=== PATIENT | female | born 1950 | race Two or more races ===

== ENCOUNTER 2025-06-29 10:57 | Inpatient (IN) | payer MEDICARE, MEDICAID ==
[~2025-06-29] VITALS: Ht 160 cm; Wt 63.0 kg
[2025-06-29] VITALS (7 sets, daily range): BP systolic 116–121; BP diastolic 56–62; PULSE 68–92; RESP 18–26; TEMP 97.9–98.4; O2SAT 91–98
--- NOTE | 2025-06-29 12:57 | ED.PDOC ---
SOB-HPI HPI Comments This is a 74 year old female presenting to the ED with chief complaint of SOB. Patient reports that she has been experiencing SOB with associated coughing and chest pressure for the past 3 weeks, worsening over the past week. Patient relays that she had steroids and antibiotics ordered by an urgent care, but no relief has been noted. Patient notes she is currently on O2 at home, on 3L, but no relief was noted. Patient denies any fever, chills, N/V, hemoptysis, or headache. Chief Complaint: Shortness of Breath Time Seen by MD: 12:55 Reviewed notes: Nurses Notes, Medications, Allergies Information Source: Patient Mode of Arrival: Ambulatory Severity: Moderate Timing: Days Duration: Since onset Context: At Rest PE Risk Factors: None History of: Asthma Prehospital treatment: Oxygen Modifying Factors: Nothing Associated Signs and Symptoms: Cough, Chest Pain Quality: Pressure Radiation: No Radiation Location: Substernal If cough with SOB: Non-Productive Past Medical History PAST MEDICAL HISTORY: Asthma Surgical History: Denies all surgeries [employer] History: Denies all [employer] Hx Family History Family History: Reviewed,noncontributory to illness Social History Smoker: Non-Smoker Alcohol: Denies ETOH Use Drugs: Denies Drug Use Lives In: Home Constitutional: denies: chills, diaphoresis, fatigue, fever, malaise, sweats, weakness, others EENTM: denies: blurred vision, double vision, ear bleeding, ear discharge, ear drainage, ear pain, ear ringing, eye pain, eye redness, hearing loss, mouth pain, mouth swelling, nasal discharge, nose bleeding, nose congestion, nose pain, photophobia, tearing, throat pain, throat swelling, voice changes, others Respiratory: reports: cough, shortness of breath; denies: hemoptysis, orthopnea, SOB at rest, SOB with excertion, stridor, wheezing, others Cardiovascular: reports: chest pain; denies: dizzy spells, diaphoresis, Dyspnea on exertion, edema, irregular heart beat, left arm pain, lightheadedness, palpitations, PND, syncope, others Gastrointestinal: denies: abdomen distended, abdominal pain, blood streaked bowels, constipated, diarrhea, dysphagia, difficulty swallowing, hematemesis, melena, nausea, poor appetite, poor fluid intake, rectal bleeding, rectal pain, vomiting, others Genitourinary: denies: abnormal vagina bleeding, burning, dyspareunia, dysuria, flank pain, frequency, hematuria, incontinence, pain, , vagina discharge, urgency, others Neurological: denies: dizziness, fainting, headache, left sided numbness, left sided weakness, numbness, paresthesia, pre-existing deficit, right sided numbness, right sided weakness, seizure, speech problems, tingling, tremors, weakness, others Musculoskeletal: denies: back pain, gout, joint pain, joint swelling, muscle pain, muscle stiffness, neck pain, others Integumetry: denies: bruises, change in color, change in hair/nails, dryness, laceration, lesions, lumps, rash, wounds, others Allergic/Immunocompromised: denies: Difficulty Healing, Frequent Infections, Hives, Itching, others Hematologic/Lymphatic: denies: anemia, blood clots, easy bleeding, easy bruising, swollen glands, others Endocrine: denies: excessive hunger, excessive sweating, excessive thirst, excessive urination, flushing, intolerance to cold, intolerance to heat, unexplained weight gain, unexplained weight loss, others Psychiatric: denies: anxiety, bipolar disorder, depression, hopeless, panic disorder, schizophrenia, sleepless, suicidal, others All Other Systems: Reviewed and Negative Physical Exam General Appearance: No Apparent Distress, Normal HEENT: Normal ENT Inspection, Pharynx Normal, TMs Normal Neck: Full Range of Motion, Non-Tender, Normal, Normal Inspection Respiratory: Chest Non-Tender, Lungs Clear, No Accessory Muscle Use, Other (Tachypneic) Cardiovascular: No Edema, No JVD, No Murmur, No Gallop, Normal Peripheral Pulses, Tachycardia Breast Exam: Deferred Gastrointestinal: No Organomegaly, Non Tender, No Pulsatile Mass, Normal Bowel Sounds, Soft Genitalia: Deferred Pelvic: Deferred Rectal: Deferred Extremities: No calf tenderness, Normal capillary refill, Normal inspection, Normal range of motion, Non-tender, No pedal edema Musculoskeletal : Apperance: Normal Neurologic: Alert, 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 Was a procedure done?: No Differential Dx Differential Diagnosis: CHF, Pneumonia, Sinusitis X-Ray, Labs, Meds, VS Vital Signs Date Time Temp Pulse Resp B/P (MAP) Pulse Ox O2 Delivery O2 Flow Rate FiO2 06/29/25 14:03 98.8 82 18 139/92 (108) 96 98.8 06/29/25 11:05 99.0 88 18 140/91 95 99.0 Lab Test 06/29/25 15:48 06/29/25 13:51 06/29/25 12:55 Range/Units Troponin I High Sensitivity Pending 6 5 </=34 ng/L White Blood Count 13.3 H 4.4-10.8 10^3/uL Red Blood Count 5.05 4.0-5.20 10^6/uL Hemoglobin 14.9 12.2-16.2 g/dL Hematocrit 45.2 36.0-46.0 % Mean Corpuscular Volume 89.5 80.0-100.0 fL Mean Corpuscular Hemoglobin 29.4 28.0-32.0 pg Mean Corpuscular Hemoglobin Concent 32.9 32.0-36.0 g/dL Red Cell Distribution Width 14.5 H 11.8-14.3 % Platelet Count 274 140-450 10^3/uL Mean Platelet Volume 7.1 6.9-10.8 fL Neutrophils (%) (Auto) 37.0-80.0 % Lymphocytes (%) (Auto) 10.0-50.0 % Monocytes (%) (Auto) 0.0-12.0 % Eosinophils (%) (Auto) 0.0-7.0 % Basophils (%) (Auto) 0.0-2.0 % Neutrophils # (Auto) 1.6-8.6 10 ^3/uL Lymphocytes # (Auto) 0.4-5.4 10 ^3/uL Monocytes # (Auto) 0-1.3 10 ^3/uL Differential Total Cells Counted 100.0 100 Neutrophils % (Manual) 50 37.0-80.0 Band Neutrophils % (Manual) 2 Lymphocytes % (Manual) 21 10.0-50.0 Monocytes % (Manual) 6 0-12 Eosinophils % (Manual) 21 H 0-7 Basophils % (Manual) 0 0.0-2.0 Metamyelocytes % (manual) 0 Myelocytes % (Manual) 0 Promyelocytes % (Manual) 0 Blast Cells % (Manual) 0 Reactive Lymphocytes 0 Platelet Estimate Adequate Sodium Level 144 136-145 mmol/L Potassium Level 3.7 3.5-5.1 mmol/L Chloride Level 106 98-107 mmol/L Carbon Dioxide Level 27 20-31 mmol/L Anion Gap 11 5-15 Blood Urea Nitrogen 14 9-23 mg/dL Creatinine 0.55 0.550-1.02 mg/dL Glomerular Filtration Rate Calc 97 >90 mL/min BUN/Creatinine Ratio 25.5 H 10.0-20.0 Serum Glucose 88 74-106 mg/dL Lactic Acid Level 0.6 0.4-2.0 mmol/L Calcium Level 9.0 8.7-10.4 mg/dL B-Type Natriuretic Peptide 11.36 0-100 pg/mL [place] [id number] Ph: [phone] DIAGNOSTIC IMAGING Diagnostic Imaging Report : [id number] Signed PATIENT: CANELO FUENTESACCT: [id number] UNIT: [id number] : 1950 LOC: ER ROOM / BED: / AGE / SEX: 74 / F ADM STATUS: REG ER SERVICE 1239 ORDERING PHYSICIAN: RENETTA RAYMUNDO MD PROCEDURE(s): CXRP - CHEST PORTABLE REASON: sob ORDER NUMBER(s): [id number], ACCESSION NUMBER(s): [id number] CHEST RADIOGRAPH INDICATION: sob TECHNIQUE: Single frontal view of the chest was obtained COMPARISON: None FINDINGS: Lines and Tubes: None Lungs: Bilateral perihilar peribronchial and perivascular prominence. Pleura: No effusion. No pneumothorax. Cardiomediastinal contours: Unremarkable cardiac size is within normal limits Bones: No acute osseous abnormality. IMPRESSION: 1. Acute versus chronic changes in the perihilar region bilaterally. ATED BY: BECKY SERRA Jr., DO DICTATED DATE/TIME: 06/29/251332 SIGNED BY: BECKY SERRA Jr., SIGNED DATE/TIME: 06/29/251332 CC: Images Reviewed?: Images reviewed and evaluated by me Time of 1ST Reevaluation: 13:54 Reevaluation 1ST: Unchanged Patient Education/Counseling: Diagnosis, Treatment Family Education/Counseling: No Family Present SEPSIS Sepsis Screen Date sepsis recognized/suspect: Jun 29, 2025 Time Sepsis recognized/suspect: 1104 Recent Procedure: No On Antibiotic Therapy: No Respiratory Rate >20: No Heart Rate >90: No Temp<36 C (96.8 F) or >38.3 C: No SBP <90 or MAP <65 mmHG: No New Acute Mental Status Change: No Is the patient on CPAP, BIPAP,: No Physician Orders Urinalysis (06/29/25 12:39) Chest Portable (06/29/25 12:39) Electrocardigram (06/29/25 12:39) Blood Culture (06/29/25 12:39) Troponin-I Hs (06/29/25 15:39) Electrocardigram (06/29/25 13:39) Electrocardigram (06/29/25 15:39) Albuterol Medneb (Ventolin Medneb) (06/29/25 16:15) Ipratropium Medneb (Atrovent Medneb) (06/29/25 16:15) Methylprednisolone Sod Succ (Solu Medrol (06/29/25 16:15) Vital Signs Date Time Temp Pulse Resp B/P (MAP) Pulse Ox O2 Delivery O2 Flow Rate FiO2 06/29/25 14:03 98.8 82 18 139/92 (108) 96 98.8 06/29/25 11:05 99.0 88 18 140/91 95 99.0 Laboratory Tests Test 06/29/25 12:55 Lactic Acid Level 0.6 mmol/L (0.4-2.0) White Blood Count 13.3 10^3/uL (4.4-10.8) H Departure 1 Departure Time of Disposition: 16:07 (Patient presented with acute shortness of breath concerning for acute on chronic COPD Exacerbation, Pneumonia, ACS, CHF, P neumothorax. Less likely PE, Dissection. Data: 1. I ordered and reviewed the result of at least 3 labs including a CBC, BMP, and Troponin. 2. I independently interpreted the following tests: Chest X-ray shows congestion .Risk:This patient has a high risk of morbidity due to further diagnostic testing or treatment and may suffer from respiratory or cardiac etiology . Workup reveals a likely COPD Exacerbation and patient should be admitted for further workup. and possible expert consultation.) Impression: Primary Impression: Acute and chronic respiratory failure Additional Impression: Shortness of breath Disposition: ADMITTED INPATIENT Admit to: Tele Condition: Guarded Critical Care Note Critical Care Time?: Yes (35 min-critical care time only) Critical care comment: Acute respiratory failure Authorized and Performed by: Renetta Raymundo MD Total critical care time: Approximately 38 minutes Due to a high probability of clinically significant, life threatening deterioration, the patient required my highest level of preparedness to intervene emergently and I personally spent this critical care time directly and personally managing the patient. This critical care time included obtaining a history; examining the patient; pulse oximetry; ordering and review of studies; arranging urgent treatment with development of a management plan; evaluation of patient's response to treatment; frequent reassessment; and, discussions with other providers. This critical care time was performed to assess and manage the high probability of imminent, life-threatening deterioration that could result in multi-organ failure. It was exclusive of separately billable procedures and treating other patients and teaching time. Please see my other sections and the rest of the note for further information on patient assessment and treatment. Stability Stability form required: No Heart Score Heart Score: Heart Score Response (Comments) Value History N/A 0 EKG N/A 0 Age N/A 0 Risk Factors N/A 0 Troponin N/A 0 Total 0 I personally scribed for RENETTA RAYMUNDO MD ([email or web address]) on 06/29/25 at 12:57. Electronically submitted by Jet Paniagua ([email or web address]). I personally scribed for RENETTA RAYMUNDO MD ([email or web address]) on 06/29/25 at 14:08. Electronically submitted by Jet Paniagua ([email or web address]). RENETTA RAYMUNDO MD Jun 29, 2025 12:57
[2025-06-29 13:06] LABS: Hematocrit 45.2 % (36.0-46.0); Hemoglobin 14.9 g/dL (12.2-16.2); Mean Corpuscular Hemoglobin 29.4 pg (28.0-32.0); Mean Corpuscular Volume 89.5 fL (80.0-100.0)
[2025-06-29 13:16] LABS: Chloride 106 mmol/L (98-107); Potassium 3.7 mmol/L (3.5-5.1); Sodium 144 mmol/L (136-145)
[2025-06-29 13:17] LABS: Anion Gap 11 (5-15); Calcium 9.0 mg/dL (8.7-10.4); Carbon Dioxide 27 mmol/L (20-31)
--- NOTE | 2025-06-29 13:21 | ECG ---
[facility] Test Date: 2025-06-29 Test Time: 11:18:10 Pat Name: CANELO PIKERADepartment: ED Room: 0245T Gender: F Hot Die Picker: [id number] : 1950 Requested By: RENETTA SLAUGHTER Order Number: [id number] Reading MD: Micha Baeza Measurements Intervals Vaughn Rate: 86 P: 43 NE: 148 QRS: -56 QRSD: 93 T: 47 QT: 388 QTc: 464 Interpretive Statements Sinus rhythm Left anterior fascicular block Abnormal R-wave progression, early transition Abnormal lateral Q waves Electronically Signed On 07-01-2025 15:26:27 PST by Micha Baeza Please click the below link to view image of tracing.
[2025-06-29 13:22] LABS: BUN/Creatinine Ratio 25.5 (10.0-20.0); Blood Urea Nitrogen 14 mg/dL (9-23); Glucose 88 mg/dL (74-106)
--- NOTE | 2025-06-29 13:35 | DVH ---
CHEST RADIOGRAPH INDICATION: sob TECHNIQUE: Single frontal view of the chest was obtained COMPARISON: None FINDINGS: Lines and Tubes: None Lungs: Bilateral perihilar peribronchial and perivascular prominence. Pleura: No effusion. No pneumothorax. Cardiomediastinal contours: Unremarkable cardiac size is within normal limits Bones: No acute osseous abnormality. IMPRESSION: 1. Acute versus chronic changes in the perihilar region bilaterally.
[2025-06-29 14:01] LABS: Total Cells Counted 100.0 (100)
[2025-06-29] MEDS: ALBUTEROL SULF 2.5 MG/0.5ML(0.5%) NEB SOLN NEB ONE (16:32)
[2025-06-29] MEDS: IPRATROPIUM BROM 0.5 MG/2.5ML INH SOL NEB ONE (16:32)
[2025-06-29] MEDS: methylPREDNISolone SOD SUCC 125 MG/2 ML VL IV ONE (16:37)
[2025-06-29] MEDS ORDERED: ACETAMINOPHEN 325 MG TAB PO PRN (17:15)
[2025-06-29] MEDS ORDERED: DOCUSATE SOD 100 MG CAP PO PRN (17:15)
[2025-06-29] MEDS ORDERED: HYDROcodone-ACET 5/325MG TAB PO PRN (17:15)
[2025-06-29] MEDS ORDERED: ONDANSETRON HCL 4 MG/2 ML VIAL IV PRN (17:15)
[2025-06-29] MEDS ORDERED: NITROGLYCERIN 0.4 MG SL TAB SL PRN (17:30)
--- NOTE | 2025-06-29 17:30 | DVHHP2 ---
History of Present Illness Reason for Visit: Acute and chronic respiratory failure History of Present Illness The patient is a 74-year-old female with past medical history of asthma who presented to [facility] ED with complaint of shortness of breaths. Patient reports that she has been experiencing shortness of breaths associated with coughing, chest pressure for the past 3 weeks, worsening today that prompted this visit. Patient was seen and evaluated in the ED, laboratory data shows WBC 13.3, platelets 274, sodium 144, potassium 3.7, BUN 14, creatinine 0.55, GFR 97, glucose 88, calcium 9.0, troponin 5, blood pressure 148/88, heart rate 92, temperature 98.1 F, O2 saturation 96% on oxygen. Chest x-ray revealing acute versus chronic change in the perihilar region bilaterally. Please see medication orders section in the computer. On my assessment, patient denied chest pain, no headache, dizziness, diaphoresis, currently on oxygen, no diarrhea, nausea, vomiting, fever, no chills. Patient was admitted for further evaluation and medical management. Past Medical History Asthma Past Surgical History Denies all surgeries Family History Reviewed, noncontributory to the management of this case. Past Social History The patient lives at home, denies smoking, alcohol or illicit drugs abuse. Review of Systems Constitutional: Yes: Weakness; No: Fever, Chills, Sweats, Malaise, Other Eyes: No: Pain, Vision change, Conjunctivae inflammation, Eyelid inflammation, Other, Redness ENT: No: Ear pain, Ear discharge, Nose pain, Nose discharge, Nose congestion, Mouth pain, Mouth swelling, Throat pain, Throat swelling, Other Respiratory: Cough, Shortness of breath; No: Dry, SOB with excertion, Wheezing, Hemoptysis, Pleuritic Pain, Sputum, Wheezing, Other Cardiovascular: Chest Pain; No: Palpitations, Orthopnea, Paroxysmal Noc. Dyspnea, Edema, Lt Headedness, Other Gastrointestinal: No: Nausea, Vomiting, Abdominal Pain, Diarrhea, Constipation, Melena, Hematochezia, Other Genitourinary: No Dysuria, No Frequency, No Incontinence, No Hematuria, No Retention, No Other Musculoskeletal: No: other, neck pain, shoulder pain, arm pain, back pain, hand pain, leg pain, foot pain Skin: No: Rash, Lesions, Jaundice, Bruising, Other Neurological: No: Weakness, Numbness, Incoordination, Change in speech, Confusion, Seizures, Other Allergies: Coded Allergies: Ibuprofen (Verified Allergy, Unknown, 06/29/25) Naproxen (Verified Allergy, Unknown, 06/29/25) Medications Current Medications Medications Dose Ordered Sig/Mack Route Start Time Stop Time Status Last Admin Dose Admin Methylprednisolone Sodium Succinate 40 mg Q8HR IV 06/29/25 22:00 UNV Famotidine 20 mg Q12HR IV 06/29/25 22:00 UNV Albuterol 2.5 mg Q4HPRN PRN NEB 06/29/25 17:15 UNV Ipratropium Addison 0.5 mg Q4HPRN PRN NEB 06/29/25 17:15 UNV Sodium Chloride 10 ml Q8HR IV 06/29/25 22:00 UNV Acetaminophen/ Hydrocodone Bitart 1 tab Q4HP PRN PO 06/29/25 17:15 UNV Ondansetron HCl 4 mg Q4HP PRN IV 06/29/25 17:15 UNV Docusate Sodium 100 mg BIDPRN PRN PO 06/29/25 17:15 UNV Acetaminophen 650 mg Q6HP PRN PO 06/29/25 17:15 UNV Exam Vital Signs Vital Signs Date Time Temp Pulse Resp B/P (MAP) Pulse Ox O2 Delivery O2 Flow Rate FiO2 06/29/25 16:54 92 22 96 Nasal Cannula* 2 28 06/29/25 16:11 98.1 148/88 (108) 98.1 General Appearance: Alert, Oriented X3, Cooperative, No acute distress HEENT: Atraumatic, PERRLA, EOMI, Mucous membr. moist/pink Respiratory: Normal air movement, Other (Diminished breath sounds) Cardiovascular: Regular rate, Normal S1, Normal S2, No murmurs Abdominal: Normal bowel sounds, Soft, No tenderness, No hepatospenomegaly, No masses Extremities: No clubbing, No cyanosis, No edema, Normal pulses, No tenderness/swelling Skin: No rashes, No significant lesion Neuro: Normal speech, Normal tone, Sensation intact, Cranial nerves 3-12 NL, Reflexes 2+, Other (Generalized weakness) Psych/Mental Status: Mental status NL, Mood NL Labs/Xrays Labs Test 06/29/25 15:48 06/29/25 12:55 Range/Units Troponin I High Sensitivity 6 </=34 ng/L White Blood Count 13.3 H 4.4-10.8 10^3/uL Red Blood Count 5.05 4.0-5.20 10^6/uL Hemoglobin 14.9 12.2-16.2 g/dL Hematocrit 45.2 36.0-46.0 % Mean Corpuscular Volume 89.5 80.0-100.0 fL Mean Corpuscular Hemoglobin 29.4 28.0-32.0 pg Mean Corpuscular Hemoglobin Concent 32.9 32.0-36.0 g/dL Red Cell Distribution Width 14.5 H 11.8-14.3 % Platelet Count 274 140-450 10^3/uL Mean Platelet Volume 7.1 6.9-10.8 fL Neutrophils (%) (Auto) 37.0-80.0 % Lymphocytes (%) (Auto) 10.0-50.0 % Monocytes (%) (Auto) 0.0-12.0 % Eosinophils (%) (Auto) 0.0-7.0 % Basophils (%) (Auto) 0.0-2.0 % Neutrophils # (Auto) 1.6-8.6 10 ^3/uL Lymphocytes # (Auto) 0.4-5.4 10 ^3/uL Monocytes # (Auto) 0-1.3 10 ^3/uL Differential Total Cells Counted 100.0 100 Neutrophils % (Manual) 50 37.0-80.0 Band Neutrophils % (Manual) 2 Lymphocytes % (Manual) 21 10.0-50.0 Monocytes % (Manual) 6 0-12 Eosinophils % (Manual) 21 H 0-7 Basophils % (Manual) 0 0.0-2.0 Metamyelocytes % (manual) 0 Myelocytes % (Manual) 0 Promyelocytes % (Manual) 0 Blast Cells % (Manual) 0 Reactive Lymphocytes 0 Platelet Estimate Adequate Sodium Level 144 136-145 mmol/L Potassium Level 3.7 3.5-5.1 mmol/L Chloride Level 106 98-107 mmol/L Carbon Dioxide Level 27 20-31 mmol/L Anion Gap 11 5-15 Blood Urea Nitrogen 14 9-23 mg/dL Creatinine 0.55 0.550-1.02 mg/dL Glomerular Filtration Rate Calc 97 >90 mL/min BUN/Creatinine Ratio 25.5 H 10.0-20.0 Serum Glucose 88 74-106 mg/dL Lactic Acid Level 0.6 0.4-2.0 mmol/L Calcium Level 9.0 8.7-10.4 mg/dL B-Type Natriuretic Peptide 11.36 0-100 pg/mL PATIENT: CANELO FUENTESACCT: [id number] UNIT: [id number] : 1950 LOC: ER ROOM / BED: / AGE / SEX: 74 / F ADM STATUS: REG ER SERVICE 1239 ORDERING PHYSICIAN: RENETTA SLAUGHTER MD PROCEDURE(s): CXRP - CHEST PORTABLE REASON: sob ORDER NUMBER(s): [id number], ACCESSION NUMBER(s): [id number] CHEST RADIOGRAPH INDICATION: sob TECHNIQUE: Single frontal view of the chest was obtained COMPARISON: None FINDINGS: Lines and Tubes: None Lungs: Bilateral perihilar peribronchial and perivascular prominence. Pleura: No effusion. No pneumothorax. Cardiomediastinal contours: Unremarkable cardiac size is within normal limits Bones: No acute osseous abnormality. IMPRESSION: 1. Acute versus chronic changes in the perihilar region bilaterally. SEPSIS Sepsis Screen Date sepsis recognized/suspect: Jun 29, 2025 Time Sepsis recognized/suspect: 110 Recent Procedure: No On Antibiotic Therapy: No Respiratory Rate >20: No Heart Rate >90: No Temp<36 C (96.8 F) or >38.3 C: No SBP <90 or MAP <65 mmHG: No New Acute Mental Status Change: No Is the patient on CPAP, BIPAP,: No Physician Orders Urinalysis (06/29/25 12:39) Chest Portable (06/29/25 12:39) Electrocardigram (06/29/25 12:39) Blood Culture (06/29/25 12:39) Electrocardigram (06/29/25 13:39) Electrocardigram (06/29/25 15:39) Albuterol Medneb (Ventolin Medneb) (06/29/25 16:15) Methylprednisolone Sod Succ (Solu Medrol (06/29/25 22:00) Famotidine Injection (Pepcid Injection) (06/29/25 22:00) Albuterol Medneb (Ventolin Medneb) (06/29/25 17:15) Ipratropium Medneb (Atrovent Medneb) (06/29/25 17:15) Allergies (06/29/25 17:05) Code Status (06/29/25 17:05) Sodium Chloride Lock (Saline Lock Ns) (06/29/25 22:00) Oxygen Per Hour (06/29/25 17:05) Hydrocodone-Acet 5/325mg Tab ([place] /32 (06/29/25 17:15) Ondansetron Hcl (Zofran) (06/29/25 17:15) Docusate Sodium Capsule (Colace Capsule) (06/29/25 17:15) Fall Risk Precautions In Place QSHIFT (06/29/25 17:05) Complete Blood Count (06/30/25 04:00) Comprehensive Metabolic Panel (06/30/25 04:00) Cardiac Diet-2gna,Lofat,Lochol (06/29/25 Dinner) Condition: Serious (06/29/25 17:05) Acetaminophen Tablet (Tylenol Tablet) (06/29/25 17:15) Maintain Bed Rest (06/29/25 17:05) Sequential Compression Device (06/29/25 ) Vital Signs Date Time Temp Pulse Resp B/P (MAP) Pulse Ox O2 Delivery O2 Flow Rate FiO2 06/29/25 16:54 92 22 96 Nasal Cannula* 2 28 06/29/25 16:33 16 94 Nasal Cannula* 2 28 06/29/25 16:11 98.1 92 24 148/88 (108) 96 98.1 06/29/25 16:11 24 96 Nasal Cannula 06/29/25 14:03 98.8 82 18 139/92 (108) 96 98.8 06/29/25 11:05 99.0 88 18 140/91 95 99.0 Laboratory Tests Test 06/29/25 12:55 Lactic Acid Level 0.6 mmol/L (0.4-2.0) White Blood Count 13.3 10^3/uL (4.4-10.8) H Medications Medications Dose Ordered Sig/Mack Route Start Time Stop Time Status Last Admin Dose Admin Albuterol 5 mg ONCE ONCE NEB 06/29/25 16:15 06/29/25 16:16 DC 06/29/25 16:32 5 MG Ipratropium Addison 0.5 mg ONCE ONCE NEB 06/29/25 16:15 06/29/25 16:16 DC 06/29/25 16:32 0.5 MG Methylprednisolone Sodium Succinate 62.5 mg ONCE ONCE IV 06/29/25 16:15 06/29/25 16:16 DC 06/29/25 16:37 62.5 MG Assessment/Plan Assessment/Plan Acute and chronic respiratory failure Leukocytosis, unspecified Acute asthma exacerbation Generalized weakness Plan 1. Admit to telemetry unit 2. Breathing treatment 3. Pain control management 4. IV antibiotic management 5. Management of fluids and electrolytes 6. Consultation for hospitalist 7. Diagnostic test chest x-ray 8. DVT prophylaxis on SCDs 9. Repeat labs CBC, CMP in a.m. 10. Home medication reviewed and reconciled 11. Continue with current medical management 12. Treatment plan discussed with patient and RN. Patient verbalized understanding. Plan discussed with: Patient, Other (RN) My Orders Orders - JT PEÑA DNP Procedure Category Date Status Time Methylprednisolone PHA 06/29/25 Logged Sod Succ (Solu Medrol 22:00 Famotidine Injection PHA 06/29/25 Logged (Pepcid Injection) 22:00 Albuterol Medneb PHA 06/29/25 Logged (Ventolin Medneb) 17:15 Ipratropium Medneb PHA 06/29/25 Logged (Atrovent Medneb) 17:15 Allergies CASSIA 06/29/25 In Process 17:05 Code Status CODE 06/29/25 Transmitted 17:05 Sodium Chloride Lock PHA 06/29/25 Logged (Saline Lock Ns) 22:00 Oxygen Per Hour RT 06/29/25 Transmitted 17:05 Hydrocodone-Acet PHA 06/29/25 Logged 5/325mg Tab ([place] 17:15 Ondansetron Hcl PHA 06/29/25 Logged (Zofran) 17:15 Docusate Sodium PHA 06/29/25 Logged Capsule (Colace 17:15 Fall Risk Precautions CASSIA 06/29/[address] 17:05 Complete Blood Count LAB 06/30/25 Verified 04:00 Comprehensive LAB 06/30/25 Verified Metabolic Panel 04:00 Cardiac DIET 06/29/25 Transmitted Diet-2gna,Lofat,Lochol Dinner Condition: Serious CASSIA 06/29/25 In Process 17:05 Acetaminophen Tablet PHA 06/29/25 Logged (Tylenol Tablet) 17:15 Maintain Bed Rest CASSIA 06/29/25 In Process 17:05 Sequential CASSIA 06/29/25 In Process Compression Device Problem List: (1) Acute and chronic respiratory failure (2) Leukocytosis, unspecified (3) Acute asthma exacerbation (4) Generalized weakness Date of Service: Jun 29, 2025 Billing Provider: JT PEÑA DNP Common Visit Codes: [id number] INP/OBS CARE (HIGH) JT PEÑA DNP Jun 29, 2025 17:30
[2025-06-29] MEDS ORDERED: MORPHINE SULFATE 4 MG/ML SYR/VIAL IV PRN (18:15)
[2025-06-29] MEDS: ALBUTEROL SULF 2.5 MG/0.5ML(0.5%) NEB SOLN NEB PRN (20:44)
[2025-06-29] MEDS: IPRATROPIUM BROM 0.5 MG/2.5ML INH SOL NEB PRN (20:45)
[2025-06-29 20:53] LABS: Urine Protein, UAD Negative (Negative)
[2025-06-29] MEDS ORDERED: BUDE0.5S (21:43)
[2025-06-29] MEDS ORDERED: AMLO1TAB21 PO (21:43)
[2025-06-29] MEDS ORDERED: METH4TAB44 PO (21:44)
[2025-06-29] MEDS ORDERED: ALBU0.084 (21:44)
[2025-06-29] MEDS ORDERED: FLUT1AER17 INH (21:44)
[2025-06-30] VITALS (19 sets, daily range): BP systolic 98–126; BP diastolic 56–65; PULSE 74–109; RESP 18–22; TEMP 97.7–98.3; O2SAT 91–99
[2025-06-30] MEDS: SODIUM CHLOR 0.9% PF (SALINE LOCK) 10ML VIAL/SYR IV SCH (00:39)
[2025-06-30] MEDS: methylPREDNISolone SOD SUCC 40 MG/ML VL IV SCH (00:39)
[2025-06-30] MEDS: FAMOTIDINE (10MG/ML) 2ML VL IV SCH (00:40)
[2025-06-30 05:59] LABS: Hematocrit 39.4 % (36.0-46.0); Hemoglobin 13.4 g/dL (12.2-16.2); Mean Corpuscular Hemoglobin 30.2 pg (28.0-32.0); Mean Corpuscular Volume 88.6 fL (80.0-100.0); Nucleated Red Blood Cells % 0.0 %
[2025-06-30 06:17] LABS: Alanine Aminotransferase 10 U/L (7-40); Albumin 4.1 g/dL (3.2-4.8); Alkaline Phosphatase 53 U/L (46-116); Anion Gap 12 (5-15); BUN/Creatinine Ratio 17.9 (10.0-20.0); Blood Urea Nitrogen 10 mg/dL (9-23); Calcium 8.8 mg/dL (8.7-10.4); Carbon Dioxide 24 mmol/L (20-31); Chloride 103 mmol/L (98-107); Glucose 170 mg/dL (74-106); Potassium 3.5 mmol/L (3.5-5.1); Sodium 139 mmol/L (136-145); Total Protein 6.4 g/dL (5.7-8.2)
[2025-06-30 06:18] LABS: Bilirubin, Total 0.5 mg/dL (0.2-1.0)
[2025-06-30] MEDS: ALBUTEROL SULF 2.5 MG/0.5ML(0.5%) NEB SOLN NEB SCH (14:23)
[2025-06-30] MEDS: IPRATROPIUM BROM 0.5 MG/2.5ML INH SOL NEB SCH (14:23)
[2025-06-30] MEDS: IPRATROPIUM BROM 0.5 MG/2.5ML INH SOL ONE (14:26)
[2025-06-30] MEDS: ALBUTEROL SULF 2.5 MG/0.5ML(0.5%) NEB SOLN ONE (14:26)
--- NOTE | 2025-06-30 16:43 | DVHPN2 ---
Subjective Patient is complaining of cough and shortness of breaths. Changes from previous H/P or p: No Changes Eyes: No Pain, No Vision change, No Conjunctivae inflammation, No Eyelid inflammation, No Other, No Redness ENT: No Ear pain, No Ear discharge, No Nose pain, No Nose discharge, No Nose congestion, No Mouth pain, No Mouth swelling, No Throat pain, No Throat swelling, No Other Cardiovascular: Chest Pain; No Palpitations, No Orthopnea, No Paroxysmal Noc. Dyspnea, No Edema, No Lt Headedness, No Other Respiratory: Cough; No Dry; Shortness of breath; No SOB with excertion, No Wheezing, No Hemoptysis, No Pleuritic Pain, No Sputum, No Other Gastrointestinal: No Nausea, No Vomiting, No Abdominal Pain, No Diarrhea, No Constipation, No Melena, No Hematochezia, No Other Genitourinary: No Dysuria, No Frequency, No Incontinence, No Hematuria, No Retention, No Other Musculoskeletal: No other, No neck pain, No shoulder pain, No arm pain, No back pain, No hand pain, No leg pain, No foot pain Skin: No Rash, No Lesions, No Jaundice, No Bruising, No Other Objective Vitals Vital Signs Date Time Temp Pulse Resp B/P (MAP) Pulse Ox O2 Delivery O2 Flow Rate FiO2 06/30/25 14:28 105 20 98 06/30/25 11:10 Room Air 06/30/25 11:10 0 21 06/30/25 09:00 98.2 126/58 (80) 98.2 Intake/Output Intake and Output 06/30/25 07:00 Intake Total 550 ml Balance 550 ml Intake Oral 500 ml IV Total 50 ml # Voids 1 Exam HEENT pupils are reactive Neck is supple CV is S1-S2 regular rate and rhythm Respiratory bilateral expiratory rhonchi GI positive bowel sound Extremity no 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 Medications Current Medications Medications Dose Ordered Sig/Mack Route Start Time Stop Time Status Last Admin Dose Admin Methylprednisolone Sodium Succinate 40 mg Q8HR IV 06/29/25 22:00 06/30/25 13:09 40 MG Famotidine 20 mg Q12HR IV 06/29/25 22:00 06/30/25 09:29 20 MG Sodium Chloride 10 ml Q8HR IV 06/29/25 22:00 06/30/25 13:09 10 ML Acetaminophen/ Hydrocodone Bitart 1 tab Q4HP PRN PO 06/29/25 17:15 Ondansetron HCl 4 mg Q4HP PRN IV 06/29/25 17:15 Docusate Sodium 100 mg BIDPRN PRN PO 06/29/25 17:15 Acetaminophen 650 mg Q6HP PRN PO 06/29/25 17:15 Ceftriaxone Sodium 50 ml @ 100 mls/hr DAILY@09 IV 06/30/25 09:00 06/30/25 09:30 100 MLS/HR Nitroglycerin 0.4 mg Q5MINP PRN SL 06/29/25 17:30 Morphine Sulfate 2 mg Q30M PRN IV 06/29/25 18:15 Ipratropium [place] 0.5 mg Q4HR NEB 07/01/25 14:00 06/30/25 14:23 0.5 MG Albuterol 2.5 mg Q4HR NEB 07/01/25 14:00 06/30/25 14:23 2.5 MG Laboratory Results Laboratory Tests 06/30/25 05:23 Chemistry Test 06/30/25 05:23 Albumin 4.1 g/dL (3.2-4.8) Calcium Level 8.8 mg/dL (8.7-10.4) Total Protein 6.4 g/dL (5.7-8.2) LFT Test 06/30/25 05:23 Alanine Aminotransferase (ALT) 10 U/L (7-40) Alkaline Phosphatase 53 U/L (46-116) Aspartate Amino Transferase (AST) 18 U/L (13-40) Total Bilirubin 0.5 mg/dL (0.2-1.0) Urinalysis Test 06/29/25 13:41 Urine Color Light-yellow (Yellow) Urine Clarity Turbid (Clear) H Urine pH 5.5 (5.0-9.0) Urine Specific [place] 1.015 (1.001-1.035) Urine Protein Negative (Negative) Urine Ketones 2+ (Negative) H Urine Blood 1+ /uL (Negative) H Urine Nitrite Negative (Negative) Urine Bilirubin Negative (Negative) Urine Urobilinogen Normal mg/dL (Negative) Urine Leukocyte Esterase Negative /uL (Negative) Urine RBC 4 /hpf (0 - 4) Urine Microscopic WBC 2 /HPF (0-5) Urine Squamous Epithelial Cells Few /hpf (<5) Urine Bacteria None seen /hpf (None Seen) Urine Mucus Few (None Seen) Urine Glucose Trace mg/dL (Normal) Microbiology Microbiology Date/Time Source Procedure Growth Status 06/29/25 12:55 Blood Blood Culture - Preliminary NO GROWTH AFTER 24 HOURS OF INCUBATION. Resulted Assessment/Plan Assessment/Plan 74-year-old female with a known history of chronic asthma presented to the hospital with the increasing shortness a breath or any cough found to have 1. Acute hypoxic respiratory failure secondary to acute asthma exacerbation 2. Acute asthma exacerbation 3. Mild leukocytosis 4. Acute and chronic inflammation changes in perihilar region suspected pneumonia -IV antibiotics, med nebs, Solu-Medrol, physical therapy evaluation and treatment, discharge plan. Plan discussed with: Patient, Other Date of Service: Jun 30, 2025 Billing Provider: MICHAEL RODRIGUEZ MD Common Visit Codes: [id number] INP/OBS CARE(HIGH), NOT BILLABLE MICHAEL RODRIGUEZ MD Jun 30, 2025 16:43
[2025-06-30] MEDS: AZITHROMYCIN 500MG/250ML 250 ML IV ONE (17:14)
[2025-06-30] MEDS: MAALOX PLUS or MAALOX 30 ML PO ONE (17:29)
[2025-07-01] VITALS (23 sets, daily range): BP systolic 102–124; BP diastolic 47–69; PULSE 60–99; RESP 16–22; TEMP 97.7–98.5; O2SAT 94–99
[2025-07-01] MEDS: IPRATROPIUM BROM 0.5 MG/2.5ML INH SOL ONE ×2 (02:16→07:11)
[2025-07-01] MEDS: ALBUTEROL SULF 2.5 MG/0.5ML(0.5%) NEB SOLN ONE ×2 (02:16→07:11)
[2025-07-01] MEDS: IPRATROPIUM BROM 0.5 MG/2.5ML INH SOL NEB SCH (10:00)
[2025-07-01] MEDS: ALBUTEROL SULF 2.5 MG/0.5ML(0.5%) NEB SOLN NEB SCH (10:00)
[2025-07-01] MEDS: AZITHROMYCIN 500MG/250ML 250 ML IV SCH (12:32)
--- NOTE | 2025-07-01 17:10 | DVHPN2 ---
Subjective Patient is complaining of cough and shortness of breaths. Changes from previous H/P or p: No Changes Eyes: No Pain, No Vision change, No Conjunctivae inflammation, No Eyelid inflammation, No Other, No Redness ENT: No Ear pain, No Ear discharge, No Nose pain, No Nose discharge, No Nose congestion, No Mouth pain, No Mouth swelling, No Throat pain, No Throat swelling, No Other Cardiovascular: Chest Pain; No Palpitations, No Orthopnea, No Paroxysmal Noc. Dyspnea, No Edema, No Lt Headedness, No Other Respiratory: Cough; No Dry; Shortness of breath; No SOB with excertion, No Wheezing, No Hemoptysis, No Pleuritic Pain, No Sputum, No Other Gastrointestinal: No Nausea, No Vomiting, No Abdominal Pain, No Diarrhea, No Constipation, No Melena, No Hematochezia, No Other Genitourinary: No Dysuria, No Frequency, No Incontinence, No Hematuria, No Retention, No Other Musculoskeletal: No other, No neck pain, No shoulder pain, No arm pain, No back pain, No hand pain, No leg pain, No foot pain Skin: No Rash, No Lesions, No Jaundice, No Bruising, No Other Objective Vitals Vital Signs Date Time Temp Pulse Resp B/P (MAP) Pulse Ox O2 Delivery O2 Flow Rate FiO2 07/01/25 14:13 91 16 99 07/01/25 14:07 Nasal Cannula 2.0 07/01/25 14:07 28 07/01/25 13:15 98.4 116/67 (83) 98.4 Intake/Output Intake and Output 07/01/25 07:00 Intake Total 2050 ml Balance 2050 ml Intake Oral 2000 ml IV Total 50 ml # Voids 5 Exam HEENT pupils are reactive Neck is supple CV is S1-S2 regular rate and rhythm Respiratory bilateral expiratory rhonchi GI positive bowel sound Extremity no 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 Medications Current Medications Medications Dose Ordered Sig/Mack Route Start Time Stop Time Status Last Admin Dose Admin Methylprednisolone Sodium Succinate 40 mg Q8HR IV 06/29/25 22:00 07/01/25 14:35 40 MG Famotidine 20 mg Q12HR IV 06/29/25 22:00 07/01/25 09:43 20 MG Sodium Chloride 10 ml Q8HR IV 06/29/25 22:00 07/01/25 14:35 10 ML Acetaminophen/ Hydrocodone Bitart 1 tab Q4HP PRN PO 06/29/25 17:15 Ondansetron HCl 4 mg Q4HP PRN IV 06/29/25 17:15 Docusate Sodium 100 mg BIDPRN PRN PO 06/29/25 17:15 Acetaminophen 650 mg Q6HP PRN PO 06/29/25 17:15 Ceftriaxone Sodium 50 ml @ 100 mls/hr DAILY@09 IV 06/30/25 09:00 07/01/25 09:45 100 MLS/HR Nitroglycerin 0.4 mg Q5MINP PRN SL 06/29/25 17:30 Morphine Sulfate 2 mg Q30M PRN IV 06/29/25 18:15 Azithromycin 250 ml @ 125 mls/hr DAILY IV 07/01/25 10:00 07/01/25 12:32 125 MLS/HR Albuterol 2.5 mg Q4HR NEB 07/01/25 10:30 07/01/25 14:07 2.5 MG Ipratropium [place] 0.5 mg Q4HR NEB 07/01/25 10:30 07/01/25 14:07 0.5 MG Laboratory Results Laboratory Tests 06/30/25 05:23 Urinalysis Test 06/29/25 13:41 Urine Color Light-yellow (Yellow) Urine Clarity Turbid (Clear) H Urine pH 5.5 (5.0-9.0) Urine Specific [place] 1.015 (1.001-1.035) Urine Protein Negative (Negative) Urine Ketones 2+ (Negative) H Urine Blood 1+ /uL (Negative) H Urine Nitrite Negative (Negative) Urine Bilirubin Negative (Negative) Urine Urobilinogen Normal mg/dL (Negative) Urine Leukocyte Esterase Negative /uL (Negative) Urine RBC 4 /hpf (0 - 4) Urine Microscopic WBC 2 /HPF (0-5) Urine Squamous Epithelial Cells Few /hpf (<5) Urine Bacteria None seen /hpf (None Seen) Urine Mucus Few (None Seen) Urine Glucose Trace mg/dL (Normal) Microbiology Microbiology Date/Time Source Procedure Growth Status 06/29/25 12:55 Blood Blood Culture - Preliminary NO GROWTH AFTER 48 HOURS OF INCUBATION. Resulted Assessment/Plan Assessment/Plan 74-year-old female with a known history of chronic asthma presented to the hospital with the increasing shortness a breath or any cough found to have 1. Acute hypoxic respiratory failure secondary to acute asthma exacerbation 2. Acute asthma exacerbation 3. Mild leukocytosis 4. Acute and chronic inflammation changes in perihilar region suspected pneumonia -IV antibiotics, med nebs, Solu-Medrol, physical therapy evaluation and treatment, discharge plan. Plan discussed with: Patient Date of Service: Jul 01, 2025 Billing Provider: MICHAEL RODRIGUEZ MD Common Visit Codes: [id number] INP/OBS CARE(HIGH) MICHAEL RODRIGUEZ MD Jul 01, 2025 17:10
[2025-07-02] VITALS (22 sets, daily range): BP systolic 118–130; BP diastolic 69–97; PULSE 82–94; RESP 16–20; TEMP 98–99.1; O2SAT 92–99
[2025-07-02] MEDS: ACETYLCYSTEINE 20%(200MG/ML) SOL 4ML NEB SCH (13:53)
--- NOTE | 2025-07-02 16:58 | DVHPN2 ---
Subjective Still has difficulty breathing with cough and wheezing Changes from previous H/P or p: Changes Eyes: No Pain, No Vision change, No Conjunctivae inflammation, No Eyelid inflammation, No Other, No Redness ENT: No Ear pain, No Ear discharge, No Nose pain, No Nose discharge, No Nose congestion, No Mouth pain, No Mouth swelling, No Throat pain, No Throat swelling, No Other Cardiovascular: Chest Pain; No Palpitations, No Orthopnea, No Paroxysmal Noc. Dyspnea, No Edema, No Lt Headedness, No Other Respiratory: Cough; No Dry; Shortness of breath; No SOB with excertion, No Wheezing, No Hemoptysis, No Pleuritic Pain, No Sputum, No Other Gastrointestinal: No Nausea, No Vomiting, No Abdominal Pain, No Diarrhea, No Constipation, No Melena, No Hematochezia, No Other Genitourinary: No Dysuria, No Frequency, No Incontinence, No Hematuria, No Retention, No Other Musculoskeletal: No other, No neck pain, No shoulder pain, No arm pain, No back pain, No hand pain, No leg pain, No foot pain Skin: No Rash, No Lesions, No Jaundice, No Bruising, No Other Objective Vitals Vital Signs Date Time Temp Pulse Resp B/P (MAP) Pulse Ox O2 Delivery O2 Flow Rate FiO2 07/02/25 14:25 83 07/02/25 14:03 16 99 07/02/25 13:53 Nasal Cannula* 2 28 07/02/25 13:25 98.0 127/97 (107) 98.0 Intake/Output Intake and Output 07/02/25 07:00 Intake Total 2936 ml Balance 2936 ml Intake Oral 2636 ml IV Total 300 ml # Voids 3 # Bowel Movements 1 General Appearance: Alert, Oriented X3, moderate distress Lungs: Other (Diffuse wheezing) Cardiovascular: Regular rate, Normal S1, Normal S2, No murmurs Abdomen: Normal bowel sounds, Soft, No tenderness Extremities: No edema Medications Current Medications Medications Dose Ordered Sig/Mack Route Start Time Stop Time Status Last Admin Dose Admin Methylprednisolone Sodium Succinate 40 mg Q8HR IV 06/29/25 22:00 07/02/25 15:08 40 MG Famotidine 20 mg Q12HR IV 06/29/25 22:00 07/02/25 10:01 20 MG Sodium Chloride 10 ml Q8HR IV 06/29/25 22:00 07/02/25 14:00 10 ML Acetaminophen/ Hydrocodone Bitart 1 tab Q4HP PRN PO 06/29/25 17:15 Ondansetron HCl 4 mg Q4HP PRN IV 06/29/25 17:15 Docusate Sodium 100 mg BIDPRN PRN PO 06/29/25 17:15 Acetaminophen 650 mg Q6HP PRN PO 06/29/25 17:15 Ceftriaxone Sodium 50 ml @ 100 mls/hr DAILY@09 IV 06/30/25 09:00 07/02/25 10:02 100 MLS/HR Nitroglycerin 0.4 mg Q5MINP PRN SL 06/29/25 17:30 Morphine Sulfate 2 mg Q30M PRN IV 06/29/25 18:15 Azithromycin 250 ml @ 125 mls/hr DAILY IV 07/01/25 10:00 07/02/25 12:54 125 MLS/HR Albuterol 2.5 mg Q4HR NEB 07/01/25 10:30 07/02/25 13:53 2.5 MG Ipratropium [place] 0.5 mg Q4HR NEB 07/01/25 10:30 07/02/25 13:53 0.5 MG Acetylcysteine 200 mg Q8HR NEB 07/02/25 14:00 07/02/25 13:53 200 MG Laboratory Results Laboratory Tests 06/30/25 05:23 Urinalysis Test 06/29/25 13:41 Urine Color Light-yellow (Yellow) Urine Clarity Turbid (Clear) H Urine pH 5.5 (5.0-9.0) Urine Specific [place] 1.015 (1.001-1.035) Urine Protein Negative (Negative) Urine Ketones 2+ (Negative) H Urine Blood 1+ /uL (Negative) H Urine Nitrite Negative (Negative) Urine Bilirubin Negative (Negative) Urine Urobilinogen Normal mg/dL (Negative) Urine Leukocyte Esterase Negative /uL (Negative) Urine RBC 4 /hpf (0 - 4) Urine Microscopic WBC 2 /HPF (0-5) Urine Squamous Epithelial Cells Few /hpf (<5) Urine Bacteria None seen /hpf (None Seen) Urine Mucus Few (None Seen) Urine Glucose Trace mg/dL (Normal) Microbiology Microbiology Date/Time Source Procedure Growth Status 06/29/25 12:55 Blood Blood Culture - Preliminary NO GROWTH AFTER 72 HOURS OF INCUBATION. Resulted Assessment/Plan Assessment/Plan Acute hypoxic respiratory failure COPD exacerbation Asthma Bilateral pneumonia Sepsis PLAN: IV Rocephin and Zithromax Add Mucomyst Inh IV Solu Medrol Med Nebs prn O2 prn Full code Advance directives discussed with patient x 18 minutes Plan discussed with: Patient My Orders Orders - ENOC JARAMILLO MD Procedure Category Date Status Time Acetylcysteine PHA 07/02/25 In Process Inhalation 20% 14:00 Date of Service: Jul 02, 2025 Billing Provider: ENOC JARAMILLO MD Common Visit Codes: [id number] INP/OBS CARE(HIGH) Secondary Visit Codes: [id number] CARE PLAN 30 MINUTES ENOC JARAMILLO MD Jul 02, 2025 16:58
[2025-07-03] VITALS (23 sets, daily range): BP systolic 122–136; BP diastolic 71–77; PULSE 79–100; RESP 14–20; TEMP 97–98.4; O2SAT 90–99
[2025-07-03 07:03] LABS: Hematocrit 39.7 % (36.0-46.0); Hemoglobin 13.6 g/dL (12.2-16.2); Mean Corpuscular Hemoglobin 30.4 pg (28.0-32.0); Mean Corpuscular Volume 89.0 fL (80.0-100.0); Nucleated Red Blood Cells % 0.0 %
[2025-07-03 07:15] LABS: Alanine Aminotransferase 22 U/L (7-40); Albumin 3.9 g/dL (3.2-4.8); Alkaline Phosphatase 54 U/L (46-116); Anion Gap 9 (5-15); BUN/Creatinine Ratio 25.0 (10.0-20.0); Blood Urea Nitrogen 14 mg/dL (9-23); Carbon Dioxide 28 mmol/L (20-31); Chloride 103 mmol/L (98-107); Magnesium 2.4 mg/dL (1.6-2.6); Potassium 3.7 mmol/L (3.5-5.1); Sodium 140 mmol/L (136-145); Total Protein 6.0 g/dL (5.7-8.2)
[2025-07-03 07:16] LABS: Bilirubin, Total 0.5 mg/dL (0.2-1.0)
[2025-07-03 07:17] LABS: Calcium 8.6 mg/dL (8.7-10.4); Glucose 219 mg/dL (74-106)
--- NOTE | 2025-07-03 09:06 | DVHPN2 ---
Subjective She is feeling better Less wheezing Less cough Changes from previous H/P or p: Changes Eyes: No Pain, No Vision change, No Conjunctivae inflammation, No Eyelid inflammation, No Other, No Redness ENT: No Ear pain, No Ear discharge, No Nose pain, No Nose discharge, No Nose congestion, No Mouth pain, No Mouth swelling, No Throat pain, No Throat swelling, No Other Cardiovascular: Chest Pain; No Palpitations, No Orthopnea, No Paroxysmal Noc. Dyspnea, No Edema, No Lt Headedness, No Other Respiratory: Cough; No Dry; Shortness of breath; No SOB with excertion, No Wheezing, No Hemoptysis, No Pleuritic Pain, No Sputum, No Other Gastrointestinal: No Nausea, No Vomiting, No Abdominal Pain, No Diarrhea, No Constipation, No Melena, No Hematochezia, No Other Genitourinary: No Dysuria, No Frequency, No Incontinence, No Hematuria, No Retention, No Other Musculoskeletal: No other, No neck pain, No shoulder pain, No arm pain, No back pain, No hand pain, No leg pain, No foot pain Skin: No Rash, No Lesions, No Jaundice, No Bruising, No Other Objective Vitals Vital Signs Date Time Temp Pulse Resp B/P (MAP) Pulse Ox O2 Delivery O2 Flow Rate FiO2 07/03/25 08:45 97.9 86 19 123/71 (88) 99 97.9 07/03/25 08:15 Nasal Cannula* 2 28 Intake/Output Intake and Output 07/03/25 07:00 Intake Total 1400 ml Output Total 2 ml Balance 1398 ml Intake Oral 1100 ml IV Total 300 ml Output Urine Total 2 ml # Voids 3 General Appearance: Alert, Oriented X3, moderate distress Lungs: Other (Diffuse wheezing) Cardiovascular: Regular rate, Normal S1, Normal S2, No murmurs Abdomen: Normal bowel sounds, Soft, No tenderness Extremities: No edema Medications Current Medications Medications Dose Ordered Sig/Mack Route Start Time Stop Time Status Last Admin Dose Admin Methylprednisolone Sodium Succinate 40 mg Q8HR IV 06/29/25 22:00 07/03/25 05:13 40 MG Famotidine 20 mg Q12HR IV 06/29/25 22:00 07/02/25 22:02 20 MG Sodium Chloride 10 ml Q8HR IV 06/29/25 22:00 07/03/25 05:13 10 ML Acetaminophen/ Hydrocodone Bitart 1 tab Q4HP PRN PO 06/29/25 17:15 Ondansetron HCl 4 mg Q4HP PRN IV 06/29/25 17:15 Docusate Sodium 100 mg BIDPRN PRN PO 06/29/25 17:15 Acetaminophen 650 mg Q6HP PRN PO 06/29/25 17:15 Ceftriaxone Sodium 50 ml @ 100 mls/hr DAILY@09 IV 06/30/25 09:00 07/03/25 08:33 100 MLS/HR Nitroglycerin 0.4 mg Q5MINP PRN SL 06/29/25 17:30 Morphine Sulfate 2 mg Q30M PRN IV 06/29/25 18:15 Azithromycin 250 ml @ 125 mls/hr DAILY IV 07/01/25 10:00 07/02/25 12:54 125 MLS/HR Albuterol 2.5 mg Q4HR NEB 07/01/25 10:30 07/03/25 07:05 2.5 MG Ipratropium [place] 0.5 mg Q4HR NEB 07/01/25 10:30 07/03/25 07:05 0.5 MG Acetylcysteine 200 mg Q8HR NEB 07/02/25 14:00 07/03/25 07:05 200 MG Laboratory Results Laboratory Tests 07/03/25 06:02 Chemistry Test 07/03/25 06:02 Albumin 3.9 g/dL (3.2-4.8) Calcium Level 8.6 mg/dL (8.7-10.4) L Magnesium Level 2.4 mg/dL (1.6-2.6) Total Protein 6.0 g/dL (5.7-8.2) LFT Test 07/03/25 06:02 Alanine Aminotransferase (ALT) 22 U/L (7-40) Alkaline Phosphatase 54 U/L (46-116) Aspartate Amino Transferase (AST) 21 U/L (13-40) Total Bilirubin 0.5 mg/dL (0.2-1.0) Urinalysis Test 06/29/25 13:41 Urine Color Light-yellow (Yellow) Urine Clarity Turbid (Clear) H Urine pH 5.5 (5.0-9.0) Urine Specific [place] 1.015 (1.001-1.035) Urine Protein Negative (Negative) Urine Ketones 2+ (Negative) H Urine Blood 1+ /uL (Negative) H Urine Nitrite Negative (Negative) Urine Bilirubin Negative (Negative) Urine Urobilinogen Normal mg/dL (Negative) Urine Leukocyte Esterase Negative /uL (Negative) Urine RBC 4 /hpf (0 - 4) Urine Microscopic WBC 2 /HPF (0-5) Urine Squamous Epithelial Cells Few /hpf (<5) Urine Bacteria None seen /hpf (None Seen) Urine Mucus Few (None Seen) Urine Glucose Trace mg/dL (Normal) Microbiology Microbiology Date/Time Source Procedure Growth Status 06/29/25 12:55 Blood Blood Culture - Preliminary NO GROWTH AFTER 72 HOURS OF INCUBATION. Resulted Assessment/Plan Assessment/Plan Acute hypoxic respiratory failure COPD exacerbation Asthma Bilateral pneumonia Sepsis PLAN: 07/02/2025: IV Rocephin and Zithromax Add Mucomyst Inh IV Solu Medrol Med Nebs prn O2 prn Full code Advance directives discussed with patient x 18 minutes 07/03/2025: Continue current management Med neb treatments as needed Oxygen as needed IV antibiotics and steroids Monitor closely Plan discussed with: Patient My Orders Orders - ENOC JARAMILLO MD Procedure Category Date Status Time Acetylcysteine PHA 07/02/25 In Process Inhalation 20% 14:00 Date of Service: Jul 03, 2025 Billing Provider: ENOC JARAMILLO MD Common Visit Codes: [id number] INP/OBS CARE(HIGH) ENOC JARAMILLO MD Jul 03, 2025 09:05
[2025-07-04] VITALS (20 sets, daily range): BP systolic 123–130; BP diastolic 65–80; PULSE 75–97; RESP 16–19; TEMP 97.6–98.2; O2SAT 96–100
--- NOTE | 2025-07-04 17:15 | DVHPN2 ---
Subjective She is feeling better Less wheezing Less cough Changes from previous H/P or p: Changes Eyes: No Pain, No Vision change, No Conjunctivae inflammation, No Eyelid inflammation, No Other, No Redness ENT: No Ear pain, No Ear discharge, No Nose pain, No Nose discharge, No Nose congestion, No Mouth pain, No Mouth swelling, No Throat pain, No Throat swelling, No Other Cardiovascular: Chest Pain; No Palpitations, No Orthopnea, No Paroxysmal Noc. Dyspnea, No Edema, No Lt Headedness, No Other Respiratory: Cough; No Dry; Shortness of breath; No SOB with excertion, No Wheezing, No Hemoptysis, No Pleuritic Pain, No Sputum, No Other Gastrointestinal: No Nausea, No Vomiting, No Abdominal Pain, No Diarrhea, No Constipation, No Melena, No Hematochezia, No Other Genitourinary: No Dysuria, No Frequency, No Incontinence, No Hematuria, No Retention, No Other Musculoskeletal: No other, No neck pain, No shoulder pain, No arm pain, No back pain, No hand pain, No leg pain, No foot pain Skin: No Rash, No Lesions, No Jaundice, No Bruising, No Other Objective Vitals Vital Signs Date Time Temp Pulse Resp B/P (MAP) Pulse Ox O2 Delivery O2 Flow Rate FiO2 07/04/25 16:49 98.0 90 19 129/77 (94) 96 98.0 07/04/25 08:00 Nasal Cannula* 2 28 Intake/Output Intake and Output 07/04/25 07:00 Intake Total 1300 ml Balance 1300 ml Intake Oral 1000 ml IV Total 300 ml # Voids 6 # Bowel Movements 2 General Appearance: Alert, Oriented X3, moderate distress Lungs: Other (Diffuse wheezing) Cardiovascular: Regular rate, Normal S1, Normal S2, No murmurs Abdomen: Normal bowel sounds, Soft, No tenderness Extremities: No edema Medications Current Medications Medications Dose Ordered Sig/Mack Route Start Time Stop Time Status Last Admin Dose Admin Methylprednisolone Sodium Succinate 40 mg Q8HR IV 06/29/25 22:00 07/04/25 14:10 40 MG Famotidine 20 mg Q12HR IV 06/29/25 22:00 07/04/25 08:59 20 MG Sodium Chloride 10 ml Q8HR IV 06/29/25 22:00 07/04/25 14:08 10 ML Acetaminophen/ Hydrocodone Bitart 1 tab Q4HP PRN PO 06/29/25 17:15 Ondansetron HCl 4 mg Q4HP PRN IV 06/29/25 17:15 Docusate Sodium 100 mg BIDPRN PRN PO 06/29/25 17:15 Acetaminophen 650 mg Q6HP PRN PO 06/29/25 17:15 Ceftriaxone Sodium 50 ml @ 100 mls/hr DAILY@09 IV 06/30/25 09:00 07/04/25 08:59 100 MLS/HR Nitroglycerin 0.4 mg Q5MINP PRN SL 06/29/25 17:30 Morphine Sulfate 2 mg Q30M PRN IV 06/29/25 18:15 Azithromycin 250 ml @ 125 mls/hr DAILY IV 07/01/25 10:00 07/04/25 10:28 125 MLS/HR Albuterol 2.5 mg Q4HR NEB 07/01/25 10:30 07/04/25 14:39 2.5 MG Ipratropium [place] 0.5 mg Q4HR NEB 07/01/25 10:30 07/04/25 14:39 0.5 MG Acetylcysteine 200 mg Q8HR NEB 07/02/25 14:00 07/04/25 14:39 200 MG Laboratory Results Laboratory Tests 07/03/25 06:02 Urinalysis Test 06/29/25 13:41 Urine Color Light-yellow (Yellow) Urine Clarity Turbid (Clear) H Urine pH 5.5 (5.0-9.0) Urine Specific [place] 1.015 (1.001-1.035) Urine Protein Negative (Negative) Urine Ketones 2+ (Negative) H Urine Blood 1+ /uL (Negative) H Urine Nitrite Negative (Negative) Urine Bilirubin Negative (Negative) Urine Urobilinogen Normal mg/dL (Negative) Urine Leukocyte Esterase Negative /uL (Negative) Urine RBC 4 /hpf (0 - 4) Urine Microscopic WBC 2 /HPF (0-5) Urine Squamous Epithelial Cells Few /hpf (<5) Urine Bacteria None seen /hpf (None Seen) Urine Mucus Few (None Seen) Urine Glucose Trace mg/dL (Normal) Microbiology Microbiology Date/Time Source Procedure Growth Status 06/29/25 12:55 Blood Blood Culture - Final NO GROWTH AFTER 5 DAYS OF INCUBATION. Complete Assessment/Plan Assessment/Plan Acute hypoxic respiratory failure COPD exacerbation Asthma Bilateral pneumonia Sepsis PLAN: 07/02/2025: IV Rocephin and Zithromax Add Mucomyst Inh IV Solu Medrol Med Nebs prn O2 prn Full code Advance directives discussed with patient x 18 minutes 07/03/2025: Continue current management Med neb treatments as needed Oxygen as needed IV antibiotics and steroids Monitor closely 07/04/25: Continue IV antibiotics O2 Med Nebs Steroids Plan discussed with: Patient Date of Service: Jul 04, 2025 Billing Provider: ENOC JARAMILLO MD Common Visit Codes: [id number] INP/OBS CARE(HIGH) ENOC JARAMILLO MD Jul 04, 2025 17:15
[2025-07-05] VITALS (21 sets, daily range): BP systolic 111–134; BP diastolic 64–85; PULSE 68–92; RESP 16–19; TEMP 97.9–98.6; O2SAT 93–100
--- NOTE | 2025-07-05 17:32 | DVHPN2 ---
Subjective She is feeling better Less wheezing Less cough Changes from previous H/P or p: No Changes Eyes: No Pain, No Vision change, No Conjunctivae inflammation, No Eyelid inflammation, No Other, No Redness ENT: No Ear pain, No Ear discharge, No Nose pain, No Nose discharge, No Nose congestion, No Mouth pain, No Mouth swelling, No Throat pain, No Throat swelling, No Other Cardiovascular: Chest Pain; No Palpitations, No Orthopnea, No Paroxysmal Noc. Dyspnea, No Edema, No Lt Headedness, No Other Respiratory: Cough; No Dry; Shortness of breath; No SOB with excertion, No Wheezing, No Hemoptysis, No Pleuritic Pain, No Sputum, No Other Gastrointestinal: No Nausea, No Vomiting, No Abdominal Pain, No Diarrhea, No Constipation, No Melena, No Hematochezia, No Other Genitourinary: No Dysuria, No Frequency, No Incontinence, No Hematuria, No Retention, No Other Musculoskeletal: No other, No neck pain, No shoulder pain, No arm pain, No back pain, No hand pain, No leg pain, No foot pain Skin: No Rash, No Lesions, No Jaundice, No Bruising, No Other Objective Vitals Vital Signs Date Time Temp Pulse Resp B/P (MAP) Pulse Ox O2 Delivery O2 Flow Rate FiO2 07/05/25 17:00 98.2 85 17 122/82 (95) 98 98.2 07/05/25 14:07 Nasal Cannula 2.0 07/05/25 14:07 28 Intake/Output Intake and Output 07/05/25 07:00 Intake Total 1100 ml Balance 1100 ml Intake Oral 800 ml IV Total 300 ml # Voids 9 # Bowel Movements 5 General Appearance: Alert, Oriented X3, moderate distress Lungs: Other (Diffuse wheezing) Cardiovascular: Regular rate, Normal S1, Normal S2, No murmurs Abdomen: Normal bowel sounds, Soft, No tenderness Extremities: No edema Medications Current Medications Medications Dose Ordered Sig/Mack Route Start Time Stop Time Status Last Admin Dose Admin Methylprednisolone Sodium Succinate 40 mg Q8HR IV 06/29/25 22:00 07/05/25 14:32 40 MG Famotidine 20 mg Q12HR IV 06/29/25 22:00 07/05/25 08:36 20 MG Sodium Chloride 10 ml Q8HR IV 06/29/25 22:00 07/05/25 14:27 10 ML Acetaminophen/ Hydrocodone Bitart 1 tab Q4HP PRN PO 06/29/25 17:15 Ondansetron HCl 4 mg Q4HP PRN IV 06/29/25 17:15 Docusate Sodium 100 mg BIDPRN PRN PO 06/29/25 17:15 Acetaminophen 650 mg Q6HP PRN PO 06/29/25 17:15 Ceftriaxone Sodium 50 ml @ 100 mls/hr DAILY@09 IV 06/30/25 09:00 07/05/25 08:36 100 MLS/HR Nitroglycerin 0.4 mg Q5MINP PRN SL 06/29/25 17:30 Morphine Sulfate 2 mg Q30M PRN IV 06/29/25 18:15 Azithromycin 250 ml @ 125 mls/hr DAILY IV 07/01/25 10:00 07/05/25 14:31 125 MLS/HR Albuterol 2.5 mg Q4HR NEB 07/01/25 10:30 07/05/25 14:07 2.5 MG Ipratropium [place] 0.5 mg Q4HR NEB 07/01/25 10:30 07/05/25 14:07 0.5 MG Acetylcysteine 200 mg Q8HR NEB 07/02/25 14:00 07/05/25 14:07 200 MG Laboratory Results Laboratory Tests 07/03/25 06:02 Urinalysis Test 06/29/25 13:41 Urine Color Light-yellow (Yellow) Urine Clarity Turbid (Clear) H Urine pH 5.5 (5.0-9.0) Urine Specific [place] 1.015 (1.001-1.035) Urine Protein Negative (Negative) Urine Ketones 2+ (Negative) H Urine Blood 1+ /uL (Negative) H Urine Nitrite Negative (Negative) Urine Bilirubin Negative (Negative) Urine Urobilinogen Normal mg/dL (Negative) Urine Leukocyte Esterase Negative /uL (Negative) Urine RBC 4 /hpf (0 - 4) Urine Microscopic WBC 2 /HPF (0-5) Urine Squamous Epithelial Cells Few /hpf (<5) Urine Bacteria None seen /hpf (None Seen) Urine Mucus Few (None Seen) Urine Glucose Trace mg/dL (Normal) Microbiology Microbiology Date/Time Source Procedure Growth Status 06/29/25 12:55 Blood Blood Culture - Final NO GROWTH AFTER 5 DAYS OF INCUBATION. Complete Assessment/Plan Assessment/Plan Acute hypoxic respiratory failure COPD exacerbation Asthma Bilateral pneumonia Sepsis PLAN: 07/02/2025: IV Rocephin and Zithromax Add Mucomyst Inh IV Solu Medrol Med Nebs prn O2 prn Full code Advance directives discussed with patient x 18 minutes 07/03/2025: Continue current management Med neb treatments as needed Oxygen as needed IV antibiotics and steroids Monitor closely 07/04/25: Continue IV antibiotics O2 Med Nebs Steroids 07/05/25: Continue current Tx O2 Med Nebs Steroids Antibiotics DC home in am Plan discussed with: Patient My Orders Orders - ENOC JARAMILLO MD Procedure Category Date Status Time Incentive Spirometry ORDERS 07/05/25 Transmitted 11:14 Date of Service: Jul 05, 2025 Billing Provider: ENOC JARAMILLO MD Common Visit Codes: [id number] INP/OBS CARE(HIGH) ENOC JARAMILLO MD Jul 05, 2025 17:32
[2025-07-06] VITALS (18 sets, daily range): BP systolic 105–129; BP diastolic 69–86; PULSE 68–94; RESP 17–20; TEMP 97.2–98.3; O2SAT 94–100
--- NOTE | 2025-07-06 13:41 | DVHPN2 ---
Subjective She is feeling better Less wheezing Less cough Still has some wheezing Changes from previous H/P or p: Changes Eyes: No Pain, No Vision change, No Conjunctivae inflammation, No Eyelid inflammation, No Other, No Redness ENT: No Ear pain, No Ear discharge, No Nose pain, No Nose discharge, No Nose congestion, No Mouth pain, No Mouth swelling, No Throat pain, No Throat swelling, No Other Cardiovascular: Chest Pain; No Palpitations, No Orthopnea, No Paroxysmal Noc. Dyspnea, No Edema, No Lt Headedness, No Other Respiratory: Cough; No Dry; Shortness of breath; No SOB with excertion, No Wheezing, No Hemoptysis, No Pleuritic Pain, No Sputum, No Other Gastrointestinal: No Nausea, No Vomiting, No Abdominal Pain, No Diarrhea, No Constipation, No Melena, No Hematochezia, No Other Genitourinary: No Dysuria, No Frequency, No Incontinence, No Hematuria, No Retention, No Other Musculoskeletal: No other, No neck pain, No shoulder pain, No arm pain, No back pain, No hand pain, No leg pain, No foot pain Skin: No Rash, No Lesions, No Jaundice, No Bruising, No Other Objective Vitals Vital Signs Date Time Temp Pulse Resp B/P (MAP) Pulse Ox O2 Delivery O2 Flow Rate FiO2 07/06/25 13:22 79 18 99 07/06/25 13:14 Room Air 0.0 07/06/25 13:14 21 07/06/25 09:00 98.0 116/76 (89) 98.0 Intake/Output Intake and Output 07/06/25 07:00 Intake Total 1040 ml Balance 1040 ml Intake Oral 740 ml IV Total 300 ml # Voids 9 General Appearance: Alert, Oriented X3, moderate distress Lungs: Other (Diffuse wheezing) Cardiovascular: Regular rate, Normal S1, Normal S2, No murmurs Abdomen: Normal bowel sounds, Soft, No tenderness Extremities: No edema Medications Current Medications Medications Dose Ordered Sig/Mack Route Start Time Stop Time Status Last Admin Dose Admin Methylprednisolone Sodium Succinate 40 mg Q8HR IV 06/29/25 22:00 07/06/25 05:54 40 MG Famotidine 20 mg Q12HR IV 06/29/25 22:00 07/06/25 09:30 20 MG Sodium Chloride 10 ml Q8HR IV 06/29/25 22:00 07/06/25 05:55 10 ML Acetaminophen/ Hydrocodone Bitart 1 tab Q4HP PRN PO 06/29/25 17:15 Ondansetron HCl 4 mg Q4HP PRN IV 06/29/25 17:15 Docusate Sodium 100 mg BIDPRN PRN PO 06/29/25 17:15 Acetaminophen 650 mg Q6HP PRN PO 06/29/25 17:15 Ceftriaxone Sodium 50 ml @ 100 mls/hr DAILY@09 IV 06/30/25 09:00 07/06/25 09:30 100 MLS/HR Nitroglycerin 0.4 mg Q5MINP PRN SL 06/29/25 17:30 Morphine Sulfate 2 mg Q30M PRN IV 06/29/25 18:15 Azithromycin 250 ml @ 125 mls/hr DAILY IV 07/01/25 10:00 07/06/25 10:37 125 MLS/HR Albuterol 2.5 mg Q4HR NEB 07/01/25 10:30 07/06/25 13:13 2.5 MG Ipratropium [place] 0.5 mg Q4HR NEB 07/01/25 10:30 07/06/25 13:13 0.5 MG Acetylcysteine 200 mg Q8HR NEB 07/02/25 14:00 07/06/25 13:13 200 MG Laboratory Results Laboratory Tests 07/03/25 06:02 Urinalysis Test 06/29/25 13:41 Urine Color Light-yellow (Yellow) Urine Clarity Turbid (Clear) H Urine pH 5.5 (5.0-9.0) Urine Specific [place] 1.015 (1.001-1.035) Urine Protein Negative (Negative) Urine Ketones 2+ (Negative) H Urine Blood 1+ /uL (Negative) H Urine Nitrite Negative (Negative) Urine Bilirubin Negative (Negative) Urine Urobilinogen Normal mg/dL (Negative) Urine Leukocyte Esterase Negative /uL (Negative) Urine RBC 4 /hpf (0 - 4) Urine Microscopic WBC 2 /HPF (0-5) Urine Squamous Epithelial Cells Few /hpf (<5) Urine Bacteria None seen /hpf (None Seen) Urine Mucus Few (None Seen) Urine Glucose Trace mg/dL (Normal) Microbiology Microbiology Date/Time Source Procedure Growth Status 06/29/25 12:55 Blood Blood Culture - Final NO GROWTH AFTER 5 DAYS OF INCUBATION. Complete Assessment/Plan Assessment/Plan Acute hypoxic respiratory failure COPD exacerbation Asthma Bilateral pneumonia Sepsis PLAN: 07/02/2025: IV Rocephin and Zithromax Add Mucomyst Inh IV Solu Medrol Med Nebs prn O2 prn Full code Advance directives discussed with patient x 18 minutes 07/03/2025: Continue current management Med neb treatments as needed Oxygen as needed IV antibiotics and steroids Monitor closely 07/04/25: Continue IV antibiotics O2 Med Nebs Steroids 07/05/25: Continue current Tx O2 Med Nebs Steroids Antibiotics DC home in am 07/06/2025: The patient is still wheezing Cough is better Continue the current management Keep in the hospital 1 more day Discharge planning for tomorrow Plan discussed with: Patient Date of Service: Jul 06, 2025 Billing Provider: ENOC JARAMILLO MD Common Visit Codes: [id number] INP/OBS CARE(HIGH) ENOC JARAMILLO MD Jul 06, 2025 13:41
[2025-07-07] VITALS (16 sets, daily range): BP systolic 115–126; BP diastolic 62–77; PULSE 73–92; RESP 14–19; TEMP 97.3–97.9; O2SAT 95–100
[2025-07-07] MEDS ORDERED: METH4PAK PO (15:00)
[2025-07-07] MEDS ORDERED: LEVO500T91 PO (15:00)
--- NOTE | 2025-07-07 15:03 | DVHDS2 ---
Discharge Summary Date of Admission Jun 29, 2025 at 17:28 Date of Discharge: Jul 07, 2025 Labs/Diagnostic Data: Laboratory Results Test 07/03/25 06:02 06/29/25 15:48 06/29/25 13:41 06/29/25 12:55 White Blood Count 10.0 10^3/uL (4.4-10.8) Red Blood Count 4.46 10^6/uL (4.0-5.20) Hemoglobin 13.6 g/dL (12.2-16.2) Hematocrit 39.7 % (36.0-46.0) Mean Corpuscular Volume 89.0 fL (80.0-100.0) Mean Corpuscular Hemoglobin 30.4 pg (28.0-32.0) Mean Corpuscular Hemoglobin Concent 34.2 g/dL (32.0-36.0) Red Cell Distribution Width 14.2 % (11.8-14.3) Platelet Count 187 10^3/uL (140-450) Mean Platelet Volume 7.8 fL (6.9-10.8) Neutrophils (%) (Auto) 88.3 % (37.0-80.0) Lymphocytes (%) (Auto) 5.8 % (10.0-50.0) Monocytes (%) (Auto) 5.9 % (0.0-12.0) Eosinophils (%) (Auto) 0.0 % (0.0-7.0) Basophils (%) (Auto) 0.0 % (0.0-2.0) Neutrophils # (Auto) 8.8 10 ^3/uL (1.6-8.6) Lymphocytes # (Auto) 0.6 10 ^3/uL (0.4-5.4) Monocytes # (Auto) 0.6 10 ^3/uL (0-1.3) Eosinophils # (Auto) 0 10 ^3/uL (0-0.8) Basophils # (Auto) 0 10 ^3/uL (0-0.2) Nucleated Red Blood Cells 0.0 % Sodium Level 140 mmol/L (136-145) Potassium Level 3.7 mmol/L (3.5-5.1) Chloride Level 103 mmol/L (98-107) Carbon Dioxide Level 28 mmol/L (20-31) Anion Gap 9 (5-15) Blood Urea Nitrogen 14 mg/dL (9-23) Creatinine 0.56 mg/dL (0.550-1.02) Glomerular Filtration Rate Calc 96 mL/min (>90) BUN/Creatinine Ratio 25.0 (10.0-20.0) Serum Glucose 219 mg/dL (74-106) Calcium Level 8.6 mg/dL (8.7-10.4) Magnesium Level 2.4 mg/dL (1.6-2.6) Total Bilirubin 0.5 mg/dL (0.2-1.0) Aspartate Amino Transferase (AST) 21 U/L (13-40) Alanine Aminotransferase (ALT) 22 U/L (7-40) Alkaline Phosphatase 54 U/L (46-116) Total Protein 6.0 g/dL (5.7-8.2) Albumin 3.9 g/dL (3.2-4.8) Troponin I High Sensitivity 6 ng/L (</=34) Urine Color Light-yellow (Yellow) Urine Clarity Turbid (Clear) Urine pH 5.5 (5.0-9.0) Urine Specific [place] 1.015 (1.001-1.035) Urine Protein Negative (Negative) Urine Ketones 2+ (Negative) Urine Blood 1+ /uL (Negative) Urine Nitrite Negative (Negative) Urine Bilirubin Negative (Negative) Urine Urobilinogen Normal mg/dL (Negative) Urine Leukocyte Esterase Negative /uL (Negative) Urine RBC 4 /hpf (0 - 4) Urine Microscopic WBC 2 /HPF (0-5) Urine Squamous Epithelial Cells Few /hpf (<5) Urine Bacteria None seen /hpf (None Seen) Urine Mucus Few (None Seen) Urine Glucose Trace mg/dL (Normal) Differential Total Cells Counted 100.0 (100) Neutrophils % (Manual) 50 (37.0-80.0) Band Neutrophils % (Manual) 2 Lymphocytes % (Manual) 21 (10.0-50.0) Monocytes % (Manual) 6 (0-12) Eosinophils % (Manual) 21 (0-7) Basophils % (Manual) 0 (0.0-2.0) Metamyelocytes % (manual) 0 Myelocytes % (Manual) 0 Promyelocytes % (Manual) 0 Blast Cells % (Manual) 0 Reactive Lymphocytes 0 Platelet Estimate Adequate Lactic Acid Level 0.6 mmol/L (0.4-2.0) B-Type Natriuretic Peptide 11.36 pg/mL (0-100) Other Laboratory Tests 07/03/25 06:02 Brief Hx & Hospital Course: Final diagnoses: Acute hypoxic respiratory failure COPD exacerbation Asthma Bilateral pneumonia due to Gram-positive/Gram-negative organisms Sepsis 74-year-old female who was admitted for acute respiratory failure and cough and congestion Chest x-ray showed pneumonia She was wheezing and therefore she was given oxygen med neb treatments and steroids She was started on IV antibiotics She had not show rapid improvement however she gradually improved and became less dyspneic She uses oxygen at home Here she is on 2 L nasal oxygen now She is feeling much better Examination today showed mild wheezing bilaterally The patient is ready to go home Discharged home on Levaquin for 7 days and a tapered steroid dose and resume the home medications Follow up with the primary care physician as soon as possible Condition at Discharge: Stable Final Diagnosis/Problems List Acute hypoxic respiratory failure COPD exacerbation Asthma Bilateral pneumonia due to Gram-positive versus Gram-negative organisms Sepsis Discharge Disposition: Home SNF Discharge Will this Physician continue t: No Discharge Instruct/Medications Diet: Cardiac 2g Na,low cholest Activity: No Restrictions, As Tolerated Follow Up/Referral: PCP as soon as possible Medications: Levaquin for 7 days Steroids tapered dose Resume home meds Scheduled Amlodipine Besylate (Amlodipine Besylate), 1 TAB PO DAILY, (Reported) [id number] (Trelegy Ellipta 200-62.5-25 Mcg/INH), 1 PUFF INH DAILY, (Reported) Levofloxacin Hemihydrate (Levaquin 500 Mg), 1 TAB PO DAILY Methylprednisolone (Medrol Dosepak), 4 MG PO UD Miscellaneous Medications Albuterol Sulfate (Albuterol Sulfate), (Reported) Budesonide (Inhalation) (Budesonide), (Reported) Methylprednisolone (Methylprednisolone), TAB PO, (Reported) Discharge Statement: "Patient was advised to return to the ER or call 911 if any headaches, dizziness, shortness of breath, chest pain, abdominal pain, bleeding, fevers, or worsening of medical condition. Patient was counseled about treatment plan, medications, possible side effects, patientverbalized understanding. All questions were answered to the best of my ability. This discharge took greater then 30 minutes in planning, reviewing documentation, counseling the patient, and discussing with other team members." ASSESSMENT ASSESSMENT Assessment Acute hypoxic respiratory failure COPD exacerbation Asthma Bilateral pneumonia Sepsis Date of Service: Jul 07, 2025 Billing Provider: ENOC JARAMILLO MD Common Visit Codes: [id number] DISCH DAY >30min ENOC JARAMILLO MD Jul 07, 2025 15:03
== END 2025-07-07 17:30 | disposition home or self-care (01) | DRG 871 ==
LOC: ER 10:57 → OVERFLOW 17:28 → EAST 21:30 → TELE-EAST 07-01 07:25
PROVIDERS: ADMIT Internal Medicine Geriatric Medicine; ATTEND Internal Medicine Geriatric Medicine
DX: A41.9 Sepsis, unspecified organism (principal); J15.69 Pneumonia due to other Gram-negative bacteria; J96.21 Acute and chronic respiratory failure with hypoxia; J15.9 Unspecified bacterial pneumonia; J44.0 Chronic obstructive pulmonary disease with (acute) lower respiratory infection; J44.1 Chronic obstructive pulmonary disease with (acute) exacerbation; J45.901 Unspecified asthma with (acute) exacerbation; Z88.6 Allergy status to analgesic agent; Z79.899 Other long term (current) drug therapy
CPT/HCPCS: 36415; 71045; 80048; 80053; 81001; 83605; 83735; 83880; 84484; 85007; 85025; 85027; 87040; 93005; 94640; 99291; G0378; J2405; J3490